=== PATIENT | female | born 1945 | race Two or more races ===

== ENCOUNTER 2020-04-03 11:46 | Outpatient (CLI) | payer OTHER | END 2020-04-03 11:52 | disposition home or self-care (01) | LOC: SONOGRAMA 11:46 | PROVIDERS: ATTEND Pathology Anatomic Pathology & Clinical Pathology | DX: Z13.29 Encounter for screening for other suspected endocrine disorder (principal) ==

== ENCOUNTER 2022-07-16 06:00 | Day surgery (SDC) | payer OTHER ==
[~2022-07-16] VITALS: Ht 160 cm; Wt 59.0 kg
[~2022-07-16 06:00] MED LIST: COZAAR100 MG PO; HYDROCHLOROTHIA25 MG PO; LEVOTHYROXINE25 MCG PO
[2022-07-16] MEDS ORDERED: MACROBID 100 M100 MG PO (10:54)
[2022-07-16] MEDS ORDERED: ULTRACET PO (10:55)
== END 2022-07-16 13:55 | disposition home or self-care (01) ==
LOC: CIR.AMB 06:00
PROVIDERS: ATTEND Obstetrics & Gynecology Gynecology
DX: N81.11 Cystocele, midline (principal); N81.89 Other female genital prolapse; R33.9 Retention of urine, unspecified; I10 Essential (primary) hypertension; E03.8 Other specified hypothyroidism; K29.60 Other gastritis without bleeding; Z85.3 Personal history of malignant neoplasm of breast; Z88.5 Allergy status to narcotic agent

== ENCOUNTER 2023-12-10 07:48 | Outpatient (CLI) | payer OTHER ==
[~2023-12-10 07:48] MED LIST changes: +MACROBID 100 M100 MG PO; +ULTRACET PO
== END 2023-12-10 08:03 | disposition home or self-care (01) ==
LOC: TOM 07:48
PROVIDERS: ATTEND Internal Medicine Hematology & Oncology
DX: C50.212 Malignant neoplasm of upper-inner quadrant of left female breast (principal); D51.3 Other dietary vitamin B12 deficiency anemia; M15.0 Primary generalized (osteo)arthritis; I10 Essential (primary) hypertension; E78.5 Hyperlipidemia, unspecified; Z85.3 Personal history of malignant neoplasm of breast; R19.5 Other fecal abnormalities
CPT/HCPCS: 71270; 74178; Q9965

== ENCOUNTER 2024-05-17 10:59 | Outpatient (CLI) | payer OTHER | END 2024-05-17 11:02 | disposition home or self-care (01) | LOC: SONOGRAMA 10:59 | PROVIDERS: ATTEND Pathology Anatomic Pathology | DX: E03.8 Other specified hypothyroidism (principal) ==